=== PATIENT | male | born 1950 | race Caucasian/White ===

== ENCOUNTER 2024-10-23 13:40 | Outpatient (CLI) | payer MEDICARE, MEDICAID, SELFPAY ==
--- NOTE | 2024-10-23 06:00 | DI.RAD_ITS ---
Exam(s) XR PAIN CLINIC LUMBAR SP 2V EXAM: XR PAIN CLINIC LUMBAR SP 2V CLINICAL HISTORY: Dx: Lumbar Radiculopathy TECHNIQUE: 2D and realtime digital imaging was performed. Radiologist not present. CONTRAST MATERIAL: None. COMPARISON: No exams were available for comparison FINDINGS: Fluoroscopy was provided for pain management therapy. Lumbar epidural steroid injection. Please refer to procedure report or details. Radiation Exposure Index: Ka,r=10.27 mGy IMPRESSION: As above. RADIATION DOSE DELIVERED:
[2024-10-23 14:17] VITALS: BP 121/74; PULSE 66; RESP 16; TEMP 36.9; O2SAT 97
[2024-10-23 15:03] VITALS: PULSE 79
[2024-10-23 15:04] VITALS: BP 158/110; PULSE 65; PULSE 69; RESP 15; O2SAT 91
[2024-10-23 15:10] VITALS: PULSE 62; PULSE 65; RESP 15; O2SAT 93
[2024-10-23 15:16] VITALS: BP 150/100; PULSE 54
--- NOTE | 2024-10-23 15:16 | PDOC.PAIN ---
Date of service: 10/23/24 Time of Service: 15:16 Pain Managment Procedure Note Procedure Note Procedure Note: INTRA-ARTICULAR FACET JOINT INJECTION VIRI SOLORZANO has been referred to the [facility] for intra-articular lumbar facet joint injection. DX: Lumbosacral spondylosis without myelopathy Pre-procedure VAS pain level: 7/10 COMMENTS: I previous evaluated him in the office. Patient was interviewed and the medical record reviewed. There were no medical, pharmacologic, radiographic or other structural contraindications to attempting fluoroscopically guided intra-articular lumbar facet joint injection. Risks and expected side effects as well as potential benefit of the procedure were reviewed and voiced concerns addressed. The printed consent form was signed and witnessed. Standard time-out procedure was performed. Patient was placed in the prone position on the fluoroscopy table and automated blood pressure cuff and pulse oximeter applied. The skin entry point for approaching bilateral facet joints at L5-S1 was identified under the most advantageous fluoroscopic view and marked. Following thorough Chlorhexadine preparation of the skin and draping and 1% lidocaine infiltration of the skin entry point and subcutaneous tissues, a 22 gauge spinal needle was placed under fluoroscopic guidance into bilateral L5-S1 facet joint. Intra-articular placement was confirmed by a clear arthrogram resulting from the injection of 0.25ml Omnipaque 240. Next, I injected 0.5 cc of Depomedrol (80 mg/cc) were injected intra-articularily at each joint with an initial reproduction of a significant component of the usual pain. Vital signs were stable throughout the procedure and were as recorded in the docflowsheet by the nursing staff. If given, dosages of intravenous drugs for anxiolysis and analgesia were documented in MAR. Follow up plans and appointments were discussed. Post procedure instruction was given as documented in nursing documentation and having met discharge criteria,was discharged from the [facility]. COMMENTS: Post-procedure VAS pain score: 2/10. He will keep track of his pain level over the next hour to see how he does and see if we can proceed with a second diagnostic facet block. Juventino Chavez DO, MPH [facility]-Pain Management [facility] CC: Burt Ramos Coding Conscious Sedation used for procedure: No CPT Codes: LMBB (includes Fluoro) Lumbar/Sacral, single lvl - 32351 ([id number] ~G) 1 level bilateral Additional Codes: Date of Service (60109) Date of service: 10/23/24
[2024-10-23] MEDS: Nerve Block Tray 1 EACH MC (15:25)
[2024-10-23] MEDS: Omnipaque 240 MG/ML 50 ML BTL IJ (15:25)
[2024-10-23] MEDS: Lidocaine 2% Pres-Free 5 ML VIAL IJ (15:26)
[2024-10-23] MEDS: methylPREDNISolone ACETATE 80 MG/ML VIAL IJ (15:26)
== END 2024-10-23 13:41 | disposition home or self-care (01) ==
PROVIDERS: PCP Family Medicine; Visit Provider Preventive Medicine Occupational Medicine
DX: M47.817 Spondylosis without myelopathy or radiculopathy, lumbosacral region (principal); M54.50 Low back pain, unspecified
CPT/HCPCS: 64493; 72100; J1010; Q9967

== ENCOUNTER 2024-12-17 13:22 | Outpatient (CLI) | payer MEDICARE, MEDICAID, SELFPAY ==
[2024-12-17 13:15] VITALS: BP 104/64; PULSE 69; RESP 18; TEMP 36.5; O2SAT 97
[2024-12-17 13:55] VITALS: PULSE 66; O2SAT 97
[2024-12-17 13:56] VITALS: BP 121/84; PULSE 63; PULSE 69; RESP 13; O2SAT 93
[2024-12-17 14:00] VITALS: PULSE 65; PULSE 67; RESP 13; O2SAT 94
[2024-12-17 14:01] VITALS: BP 117/81; PULSE 52; PULSE 57; RESP 12; O2SAT 94
[2024-12-17 14:10] VITALS: PULSE 58; PULSE 59; RESP 17; O2SAT 93
--- NOTE | 2024-12-17 14:11 | PDOC.PAIN_ITS ---
Date of service: 12/17/24 Time of Service: 14:11 Pain Managment Procedure Note Procedure Note Procedure Note: PROCEDURE NOTE Bilateral Lumbar Medial Branch Blocks Date of Service: December 17, 2024 Patient: VIRI SOLORZANO Provider: Juventino Chavez DO, MPH VIRI SOLORZANO has been referred to the [facility] for lumbar medial branch blocks. Pre-operative diagnosis: Lumbar Spondylosis without Myelopathy ICD-10 M47.816 Post-operative diagnosis: Same Pre-procedure pain: VAS= 7/10 COMMENTS: He did very well with the first bilateral L5-S1 facet joint blocks VIRI? was interviewed and the medical records were reviewed. There were no medical, pharmacologic, radiographic or other structural contraindications to attempting fluoroscopically guided local anesthetic lumbar medial branch blocks. Risks and potential side effects were discussed. I also discussed the potential benefit(s) of the procedure with VIRI, and voiced concerns were addressed. After VIRI was completely informed about the procedure, the printed consent form was signed. A standard time-out procedure was performed. VIRI was placed in the prone position on the fluoroscopy table. Automated blood pressure cuff and pulse oximeter were applied. The skin entry points for approaching the anatomic target points of the segmental medial branches of bilateral L4 and L5 were identified with fluoroscopy and marked. The skin at the target site area was thoroughly prepared with Chlorhexadine. The skin was then draped. Next, a 25 gauge 3.5 spinal needle was placed under fluoroscopic guidance down on to the target point (the articular pillar) for each respective segmental medial branch. Position was confirmed in A/P and lateral views. Aspiration revealed no blood or clear fluid. Next, 0.25ml of omnipaque 240 was injected at each level. No contrast following a vascular or neural pattern was visualized under continuous fluoroscopy. Next, 0.25 ml of preservative-free 0.5% bupivicaine was injected at each level. There was no unusual discomfort expressed by VIRI. The needles were withdrawn without difficulty. (49 mls of Omnipaque was wasted) VIRI was observed and was without hemodynamic, neurologic, or allergic reactions.? Fluoroscopic images were digitally archived. Provacative testing using the Modified Chow's facet loading test- Left side Right Side Directly before the block VAS (0-10) = 7/10 VAS (0-10) = 7/10 Five minutes after the block VAS (0-10) = 0/10 VAS (0-10) = 0/10 Percentage relief obtained with this diagnostic block 100% 100% Any improved physical functioning directly after the blocks? Able to move his back much easier. Follow up plans and appointments were discussed with VIRI. VIRI was instructed to keep careful note of how the usual pain was modified by these injections. Specifically, to keep a pain diary for the next 4 hours using a numeric pain scale of 0-10 and report these results. Post procedure instruction was given as documented in the nursing documentation and having met discharge criteria, the patient was discharged from the [facility]. Based on the medial branches blocked today, if they patient has adequate relief and we are able to proceed to radiofrequency ablation, the treatment should result in the denervation of the bilateral L5-S1 facet joints. We would expect to denervate a total of 2 facets during the radiofrequency ablation. COMMENTS: No apparent complications. Post-procedure pain: VAS= 0/10 VIRI will call back with 0-4 hour post-procedure pain scores. I personally performed the entire procedure. JUVENTINO CAHVEZ DO, MPH [employer]-subspecialty board certification in Pain Medicine [facility] Coding Conscious Sedation used for procedure: No CPT Codes: LMBB (includes Fluoro) Lumbar/Sacral, single lvl *BILATERAL* - [id number] ([id number]~G5) Additional Codes: Date of Service (68164) Date of service: 12/17/24 Diagnoses: lumbosacral spondylosis without myelopathy
[2024-12-17] MEDS: Bupivacaine 0.5% Pres-Free 10 ML VIAL IJ (14:19)
[2024-12-17] MEDS: Omnipaque 240 MG/ML 50 ML BTL IJ (14:19)
[2024-12-17] MEDS: Nerve Block Tray 1 EACH MC (14:19)
--- NOTE | 2024-12-17 14:20 | DI.RAD_ITS ---
Exam(s) XR PAIN CLINIC LUMBAR SP 2V EXAM: XR PAIN CLINIC LUMBAR SP 2V CLINICAL HISTORY: Dx: Lumbar Spondylosis. TECHNIQUE: Fluoroscopy was provided for the referring physician for guidance with performing pain clinic injection procedure. COMPARISON: No exams were available for comparison FINDINGS: Please see procedure note for details. Fluoro time: 51.4 seconds RADIATION DOSE DELIVERED: va Licona=15.7 mGy
== END 2024-12-17 13:23 | disposition home or self-care (01) ==
LOC: PC 13:22
PROVIDERS: PCP Family Medicine; Visit Provider Preventive Medicine Occupational Medicine
DX: M54.50 Low back pain, unspecified (principal); M47.816 Spondylosis without myelopathy or radiculopathy, lumbar region
CPT/HCPCS: 64493; 72100; J0665; Q9967

== ENCOUNTER 2025-01-21 07:11 | Outpatient (CLI) | payer MEDICARE, MEDICAID, SELFPAY ==
[2025-01-21] VITALS (14 sets, daily range): BP systolic 127–167; BP diastolic 69–108; PULSE 55–89; RESP 10–20; TEMP 37.5; O2SAT 88–99
--- NOTE | 2025-01-21 06:00 | DI.RAD_ITS ---
Exam(s) XR PAIN CLINIC LUMBAR SP 2V EXAM: XR PAIN CLINIC LUMBAR SP 2V CLINICAL HISTORY: DX: Lumbar Spondylosis TECHNIQUE: 2D and realtime digital imaging was performed. CONTRAST MATERIAL: Refer to procedure report. COMPARISON: No exams were available for comparison FINDINGS: Fluoroscopy was provided for Dr. Chavez during the performance of a lumbar radiofrequency ablation. Please refer to the procedure report for complete details. Ka,r=15.8 mGy IMPRESSION: RADIATION DOSE DELIVERED: 0.0 0.0 0
[2025-01-21] MEDS: fentaNYL 100 MCG/2 ML VIAL IJ (08:15)
[2025-01-21] MEDS: Midazolam 2 MG/2 ML VIAL IVP (08:15)
[2025-01-21] MEDS: Lactated Ringers 500 ML 30 ML IV (08:30)
[2025-01-21] MEDS: Bupivacaine 0.5% Pres-Free 10 ML VIAL IJ (08:50)
[2025-01-21] MEDS: Lidocaine 2% Pres-Free 5 ML VIAL IJ (08:51)
[2025-01-21] MEDS: Nerve Block Tray 1 EACH MC (08:51)
[2025-01-21] MEDS: methylPREDNISolone ACETATE 40 MG/ML VIAL IJ (08:51)
--- NOTE | 2025-01-21 08:51 | PDOC.PAIN ---
Date of service: 01/21/25 Time of Service: 08:51 Pain Managment Procedure Note Procedure Note Procedure Note: PROCEDURE NOTE BILATERAL LUMBAR RADIOFREQUENCY ABLATION Date of Service: January 21, 2025 Patient:VIRI PEPPER? Provider:? Juventino Dobbins DO, MPH VIRI SOLORZANO has been referred to the [facility] for Bilateral Lumbar Radiofrequency Ablation with the QuickSolars Machine.? Pre Operative Diagnosis: Lumbosacral Spondylosis without Myelopathy ICD-10 M47.816 Post Operative Diagnosis: Same Pre procedure pain; VAS= 7/10 Comments: Great relief with LMBBs at bilateral L4 and L5 X 2. History of L3-L5 instrumented fusion. PROCEDURE: Radiofrequency Ablation of medial branches - bilateral L4 and L5 and lateral branches of bilateral S1. VIRI?was interviewed and the medical record was reviewed.? There were no medical, pharmacologic, radiographic or other structural contraindications to attempting fluoroscopically guided BILATERAL Lumbar Radiofrequency Ablation.?Risks and expected side effects as well as potential benefit of the procedure were reviewed with VIRI, and the patient's voiced concerns were addressed.? The printed consent form was signed.? Standard time-out procedure was performed. VIRI was brought into the fluoroscopy suite and positioned into the prone position on the fluoroscopy table and allowed to adjust to a position of comfort. A grounding pad was placed on the left abdomen. The sterile field was prepared using chlorhexidine preparation of the skin and sterile draping. Local anesthesia superficial and deep was provided by local infiltration of 2% lidocaine. A 17g 100 mm radiofrequency introducer needle was placed to the planned anatomic targets guided with intermittent fluoroscopy with a perpendicular approach to terminally place at the junction of the superior articular process and the transverse process of the bilateral L5, the base of the sacral ala on the bilateral for the L5 medial branch nerve and the area between base of the sacral ala to the S1 foramen bilaterally. The stylets were removed and radiofrequency probes with a 4mm active tip were then inserted. Needle tip position of the probes was verified in the AP, oblique, and lateral views. At each site, the medial branch nerve was stimulated at 2 Hz to a maximum 1-2 volts determined to finalize safe needle and electrode placement. The patient was awake and responsive during this portion of the procedure. Each target was anesthetized with 1-2 mL of 2 % Lidocaine for anesthesia for lesioning and then each target was lesioned at 80 degrees Celsius for 2 minutes and 30 seconds. Tissue impedances were noted to be between 250 and 500 Ohms. I then injected 1/2 cc of depemedrol (40 mg/cc) followed by 1 cc of 0.5% Bupivacaine at each segmental sensory nerve. There was no unusual discomfort expressed by VIRI. The needles were withdrawn without difficulty and bandages placed over the needle placement sites, the patient was observed and was without hemodynamic, neurologic, or allergic reactions. Fluoroscopic images were digitally archived. POST PROCEDURE EVALUATION: IMPRESSION: 1. Summary of procedure. Medication given is documented in the MAR. 2. Follow up plan: VIRI to contact [facility] as needed.?This procedure may be repeated if the patient achieves at least 50% improvement in pain/function for at least 6 months. 3. Estimated Blood Loss: <5 mls 4. Fluoroscopy time: Documented in the EMR. Follow up plans and appointments were discussed with the VIRI. Post procedure instruction was given as documented in nursing documentation and having met discharge criteria, VIRI was discharged from the [facility]. This advanced procedure uses cooled radiofrequency energy to safely target the sensory nerves responsible for sending pain signals.1 A radiofrequency generator transmits a small current of Radiofrequency energy through an insulated electrode, or probe, placed within tissue. Ionic heating, produced by the friction of charged molecules, thermally deactivates the nerves responsible for sending pain signals to the brain. Radiofrequency energy heats and cools the tissue at the site of pain. Unlike other Radiofrequency procedures, Coolief circulates water through the device while heating nervous tissue to create a larger treatment area, increasing the opportunity to help with pain. This combination targets the pain-transmitting nerves without excessive heating, leading to pain relief. COMMENTS: No apparent complications. Post-procedure pain: VAS= 0/10. I personally completed the entire procedure. JUVENTINO DOBBINS DO, MPH [employer] - Subspecialty board certification in Pain Medicine [facility] Coding Conscious Sedation used for procedure: Yes CPT Codes: Single Facet Joint, Lumbar/Sacral *BILATERAL* - [id number] ([id number]~G) Additional Codes: Date of Service (44973) Date of service: 01/21/25 Diagnoses: Lumbosacral spondylosis without myelopathy
== END 2025-01-21 07:12 | disposition home or self-care (01) ==
LOC: PC 07:12
PROVIDERS: PCP Family Medicine; Visit Provider Preventive Medicine Occupational Medicine
DX: M54.50 Low back pain, unspecified (principal); M47.816 Spondylosis without myelopathy or radiculopathy, lumbar region
CPT/HCPCS: 64635; 72100; J0665; J1010; J2250; J3010